=== PATIENT | male | born 1980 | race Caucasian/White ===

== ENCOUNTER 2018-07-05 11:45 | Emergency (ER) | payer MEDICAID ==
[2018-07-05] MEDS ORDERED: DIAZEPAM 5 MG TAB PO ONE (12:06)
[2018-07-05] MEDS ORDERED: predniSONE 20 MG TAB PO ONE (12:06)
[2018-07-05] MEDS ORDERED: LIDOCAINE 4%/MENTHOL 1% PATCH TD ONE (12:06)
--- NOTE | 2018-07-05 12:10 | EDPHY ---
H & P Stated Complaint: low back pain Time Seen by Provider: 07/05/18 11:59 HPI/ROS: CHIEF COMPLAINT: Low back pain HISTORY OF PRESENT ILLNESS: The patient is a 38-year-old man with a history of chronic low back pain. He states that he has dealt with this for decades and has had multiple rounds of medications and workups and in the past has received spinal injections. He decided to come to this area camping with his family but is now having increased back pain. No weakness or numbness. Normal ambulation. No bowel or bladder abnormalities. The pain does not radiate to the legs. No weakness or numbness. Severity: Severe Modifying factors: Movement REVIEW OF SYSTEMS: Constitutional: denies: chills, fever, recent illness, recent injury EENTM: denies: blurred vision, double vision, nose congestion Respiratory: denies: cough, shortness of breath Cardiac: denies: chest pain, irregular heart rate, lightheadedness, palpitations Gastrointestinal/Abdominal: denies: abdominal pain, diarrhea, nausea, vomiting, blood streaked stools Genitourinary: denies: dysuria, frequency, hematuria, pain Musculoskeletal: See HPI Skin: denies: lesions, rash, jaundice, bruising Neurological: denies: headache, numbness, paresthesia, tingling, dizziness, weakness Hematologic/Lymphatic: denies: blood clots, easy bleeding, easy bruising Immunologic/allergic: denies: HIV/AIDS, transplant 10 systems reviewed and negative except as noted EXAM: GENERAL: Well-appearing, well-nourished and in no acute distress. HEAD: Atraumatic, normocephalic. EYES: Pupils equal round and reactive to light, extraocular movements intact, sclera anicteric, conjunctiva are normal. ENT: TMs normal, nares patent, oropharynx clear without exudates. Moist mucous membranes. NECK: Normal range of motion, supple without lymphadenopathy or JVD. LUNGS: Breath sounds clear to auscultation bilaterally and equal. No wheezes rales or rhonchi. HEART: Regular rate and rhythm without murmurs, rubs or gallops. ABDOMEN: Soft, nontender, normoactive bowel sounds. No guarding, no rebound. No masses appreciated. BACK: Low back pain, no tenderness or deformities. EXTREMITIES: Normal range of motion, no pitting or edema. No clubbing or cyanosis. NEUROLOGICAL: Cranial nerves II through XII grossly intact. Normal speech, normal gait. 5/5 strength, normal movement in all extremities, normal sensation , normal reflexes PSYCH: Normal mood, normal affect. SKIN: Warm, dry, normal turgor, no visible rashes or lesions. Source: Patient Exam Limitations: No limitations - Personal History Current Tetanus Diphtheria and Acellular Pertussis (TDAP): Yes Tetanus Vaccine Date: 4 YEARS AGO - Medical/Surgical History Hx Asthma: Yes Hx Chronic Respiratory Disease: No Hx Diabetes: No Hx Cardiac Disease: No Hx Renal Disease: No Hx Cirrhosis: Yes Hx Alcoholism: Yes Hx HIV/AIDS: No Hx Splenectomy or Spleen Trauma: No Other PMH: EAR SURG. 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, ETOH ABUSE, pericentesis, disk problems, liver cirrhosis, peripheral neuropathy- feet and hands, ulcers, kidney stones,asthma, tooth extraction, spinal stenosis , allison, pancreatitis - Family History Significant Family History: No pertinent family hx - Social History Smoking Status: Former smoker Alcohol Use: Sober Drug Use: None Constitutional: Initial Vital Signs Temperature (C) 36.6 C 07/05/18 11:49 Heart Rate 99 07/05/18 11:49 Respiratory Rate 18 07/05/18 11:49 Blood Pressure 129/110 H 07/05/18 11:49 O2 Sat (%) 97 07/05/18 11:49 O2 Delivery Mode Room Air Allergies/Adverse Reactions: No Known Allergies Allergy (Verified 07/05/18 11:55) Home Medications: Medication Instructions Recorded Albuterol [Proventil Neb] 3 ml IH TID PRN 01/24/15 Albuterol [Proventil] 2 inh IH Q6 PRN 01/24/15 Beclomethasone Qvar 40 [Qvar 40] 2 inh IH DAILY 01/24/15 Esomeprazole Mag Trihydrate 40 mg PO DAILY 01/24/15 [Nexium] Gabapentin [Neurontin 100 MG (*)] 100 mg PO BID 01/24/15 Magnesium Oxide [Magnesium Oxide 400 mg PO DAILY 01/24/15 400 mg (*)] Multivitamins [Multivitamin (*)] 1 tab PO DAILY 01/24/15 Ondansetron Odt [Zofran Odt 4 mg 4 mg PO Q6 PRN 01/24/15 (*)] Carvedilol 07/05/18 Diazepam [Valium 5 MG (*)] 5 mg PO TID PRN #10 tab 07/05/18 HCTZ (*) 07/05/18 Lidocaine [Lidoderm] 1 each TP DAILY PRN 5 Days 07/05/18 adh..patch MIRTAZAPINE 07/05/18 Sertraline HCl 07/05/18 predniSONE 60 mg PO DAILY #15 tab 07/05/18 Medical Decision Making ED Course/Re-evaluation: We discussed the department's no narcotic policy for chronic pain. The patient was somewhat frustrated that he was not told this before checking in. We agreed to try steroids, lidocaine patch and Valium. He states that typically he uses these 3 in addition to opiate pain medications. He currently does not have any neurologic deficits. We discussed returning to the department if he does. Differential Diagnosis: Partial list of the Differential diagnosis considered include but were not limited to; low back pain, radiculopathy and although unlikely based on the history and physical exam, I also considered infection, fracture calm aneurysm, kidney stone. I discussed these differential diagnoses and the plan with the patient as well as the usual and expected course. The patient understands that the diagnosis is provisional and that in medicine we are not always correct and that further workup is often warranted. Usual and customary warnings were given. All of the patient's questions were answered. The patient was instructed to return to the emergency department should the symptoms at all worsen or return, otherwise to followup with the physician as we discussed. - Data Points Medications Given: Discontinued Medications Diazepam (Valium) 5 mg PO EDNOW ONE Stop: 07/05/18 12:07 Last Admin: 07/05/18 12:29 Dose: 5 mg Miscellaneous Medication (Icy Hot Lidocaine/Menthol 4%/1% Patch) 1 patch TD EDNOW ONE Stop: 07/05/18 12:07 Last Admin: 07/05/18 12:27 Dose: 1 patch Prednisone (Prednisone) 60 mg PO EDNOW ONE Stop: 07/05/18 12:07 Last Admin: 07/05/18 12:29 Dose: 60 mg Departure - Departure Disposition: Home, Routine, Self-Care Clinical Impression: Chronic low back pain Qualifiers: Back pain laterality: midline Sciatica presence: without sciatica Qualified Code(s): M54.5 - Low back pain; G89.29 - Other chronic pain; G89.29 - Other chronic pain Condition: Fair Instructions: Chronic Back Pain (ED) Referrals: NONE *PRIMARY CARE P,. [Primary Care Provider] - 2-3 days, if not improved Prescriptions: Diazepam [Valium 5 MG (*)] 5 mg PO TID PRN #10 tab PRN Reason: Spasms Lidocaine [Lidoderm] 1 each TP DAILY PRN 5 Days adh..patch PRN Reason: Pain, Severe predniSONE 60 mg PO DAILY #15 tab
[2018-07-05 12:39] VITALS: BP 156/85
[2018-07-05] MEDS ORDERED: PATCH REMOVAL 1 EA PATCH TD SCH (21:00)
== END 2018-07-05 12:38 | disposition home or self-care (01) ==
LOC: CED 11:45
DX: M54.5 Low back pain (principal); G89.29 Other chronic pain
CPT/HCPCS: J7512